=== PATIENT | female | born 1975 | race Caucasian/White ===

== ENCOUNTER 2016-09-30 06:33 | Day surgery (SDC) | payer SELFPAY ==
[2016-09-29 10:15] VITALS: BMI 24.8
[2016-09-30] MEDS ORDERED: HEPARIN NA (PORCINE) 5,000 UNITS/ML 1ML VIAL ONE (07:20)
[2016-09-30] MEDS ORDERED: ceFAZolin SODIUM 1 GM VIAL ONE ×2 (07:20→19:16)
[2016-09-30] MEDS ORDERED: EPINEPHrine/PF 1 MG/1 ML (1:1,000) AMPULE ONE ×3 (07:23→10:56)
[2016-09-30] MEDS ORDERED: LIDOCAINE HCL 1%, 10 MG/ML (20ML VIAL) ONE ×2 (07:23→10:56)
[2016-09-30] MEDS ORDERED: BACITRACIN 30 GM TUBE TOPICAL OINTMENT ONE (07:23)
[2016-09-30] MEDS ORDERED: ceFAZolin SODIUM 1 GM VIAL IVPB ONE (08:28)
[2016-09-30] MEDS ORDERED: DESFLURANE GAS 240 ML BOTTLE IH ONE (10:32)
[2016-09-30] MEDS ORDERED: oxyCODONE HCL 5 MG TABLET PO PRN (13:22)
[2016-09-30] MEDS ORDERED: ONDANSETRON 4 MG/2 ML VIAL IVPB PRN (13:22)
[2016-09-30] MEDS ORDERED: morphine CARPU-JECT 10 MG/1 ML DISP.SYRIN IVPUSH PRN (13:22)
[2016-09-30] MEDS ORDERED: HYDROmorphone HCL CARPU-JECT 2 MG/1 ML DISP.SYRIN IVPUSH ONE ×2 (13:40→14:00)
[2016-09-30] MEDS ORDERED: HYDROmorphone HCL CARPU-JECT 2 MG/1 ML DISP.SYRIN ONE ×2 (13:40→18:01)
[2016-09-30] MEDS ORDERED: HYDROmorphone HCL CARPU-JECT 1 MG/1 ML DISP.SYRIN IVPUSH PRN (13:41)
[2016-09-30] MEDS ORDERED: CEFAZOLIN (PRE-DOCKED) 50 ML IVPB SCH (15:00)
[2016-09-30] MEDS: LACTATED RINGERS SOLUTION 1,000 ML IV SCH (17:30)
[2016-09-30] MEDS: CEFAZOLIN (PRE-DOCKED) 50 ML IVPB SCH (20:00)
[2016-10-01] MEDS: CEFAZOLIN (PRE-DOCKED) 50 ML IVPB SCH ×4 (02:55→20:51)
[2016-10-01] MEDS: LACTATED RINGERS SOLUTION 1,000 ML IV SCH ×3 (05:49→18:58)
[2016-10-01] MEDS ORDERED: LACTATED RINGERS SOLUTION 1,000 ML IV ONE (08:34)
--- NOTE | 2016-10-01 08:39 | PN ---
Progress Note (short form) - Note Progress Note: All tissues dry and viable, no hematoma. ambulating, will dose sq heparin. patient with tachycardia 120s. plan CBC, duplex, bolus fluid, observe until later today. minimal pain, no leg pain, no SOB. obs this morning/ afternoon.
[2016-10-01] MEDS: HEPARIN NA (PORCINE) 5,000 UNITS/ML 1ML VIAL SQ SCH ×3 (09:24→23:05)
[2016-10-01 09:41] LABS: MCH 30.8 pg (25.7-33.7); MCHC 34.9 g/dl (32.0-36.0); MEAN CELL VOLUME 88.4 fl (80-96); MEAN PLT VOLUME 9.1 fl (7.5-11.1); PLATELET COUNT 214 K/MM3 (134-434); RDW 13.1 % (11.6-15.6); WHITE BLOOD COUNT 8.8 K/mm3 (4.0-10.0)
--- NOTE | 2016-10-01 09:41 | OP ---
DATE OF OPERATION: 09/30/2016 PROCEDURE: Liposuction to abdomen, flanks, back, and lateral thighs with free fat grafting to buttocks and hips. ATTENDING SURGEON: Lucius Armenta MD CATERING DIRECTOR: None. ANESTHESIA: General endotracheal anesthesia. The patient was marked in the holding area awake and aware of all areas of liposuction and fat grafting awake and aware of incisions and resulting scars. The patient was counseled on all of the risks, benefits, and alternatives to the procedure and understands and agrees to proceed. Then 5000 units of subcutaneous heparin are given preoperatively prior to going to the operating room. The patient is given sequential compression stockings and Alin hose. She is then brought to the operating room and placed in a supine position. Carefully padded in all ways. Positioned by surgical and anesthesia teams. A Farah catheter was placed, which was removed at the end of the procedure. A gram of Ancef is given preoperatively. She is prepped and draped in a standard surgical fashion. A time-out is called. Patient, procedure, site, side is verified. DESCRIPTION OF PROCEDURE: With multiple stab wound incisions measuring 5 mm in length, wetting solution is infiltrated to the lower abdomen, upper abdomen, and bilateral flanks. A total of 2500 mL of wetting solution is given. The first liter only contains 20 mL of 1% lidocaine plain with all of the liters containing 1 ampule of 1:1000 epinephrine. A full 20 minutes is awaited for hemostatic effect of the wetting solution prior to performing any liposuction. After awaiting the full 20 minutes, the SAFE liposuction technique is used with pre and post tunneling using a nonsuction 4 mm exploded tip cannula. After pre tunneling liposuction is performed with a combination of 5-mm cannulas for deep liposuction and 4-mm cannulas for more superficial liposuction, the lipoaspirates are 400 mL from each flank and 1300 mL from the lower abdomen and 600 mL from the upper abdomen. At complete of the liposuction, the liposuction incisions are closed with a series of interrupted 5-0 nylon suture with all members of the anesthesia and surgical teams available. The patient is then transferred while intubated onto her surgical stretcher while the operating table is then prepared for prone positioning with chest rolls, prone view set up. All extremities are carefully padded. The patient is then turned into a prone position and is carefully positioned by surgical and anesthesia teams after which the patient is reprepped and draped for further liposuction and fat grafting to the back and buttocks respectively. The liposuction continued. The same SAFE technique is used with pre and post tunneling. The lipoaspirates are 1200 mL from the lower back and 200 mL from each the right and left upper back. An additional 150 mL of able to be removed from each flank. An additional 200 mL is removed from each lateral thigh. Again, the tumescent mixture had been applied 20 minutes prior to liposuction. The tumescent mixture is the same as was used on the front. A total of 2.5 L is once again used. Only the first liter contains 20 mL of 1% lidocaine plain. All of the other liters contain 1 ampule of 1:1000 epinephrine per liter. Once the fat is entirely harvested and the liposuction incisions are closed with 5-0 nylon suture, the fat is processed using a [employer] fat processing system. It is washed with saline and decanted as gravity . Transferred into the combination of 10-, 20-, and 60-mL syringes. With separate small stab wound incisions on the buttocks on various locations, fat injection is then performed. The injection is performed in a subcutaneous and intramuscular plane with care to avoid any and all nerves and arteries. The total amount of fat injection, which is done with small quantity Saavedra technique using 1.5-mm Saavedra cannulas of varying lengths are to the left hip 220 mL, to the left buttock 500 mL, to the right hip 190 mL, and to the right buttock 480 mL. The endpoint is symmetric, even contour with good augmentation. The injection sites are closed with 5-0 nylon suture. The compression garment is then applied with cut outs for the buttocks bilaterally. The drapes are removed. The patient is then returned to a supine position on her surgical stretcher where she is extubated night a supine position having tolerated the procedure well. Transferred to recovery. On exam, she is neurologically intact with good sensation and motor to all extremities postoperatively. Edna [id number]
[2016-10-01] MEDS ORDERED: LACTOBACILLUS ACIDOPHILUS 1 EACH TAB (FP) PO SCH (10:00)
[2016-10-01] MEDS: CHOLECALCIFEROL (VITAMIN D3) 400 UNIT TABLET (FP) PO SCH (10:34)
--- NOTE | 2016-10-01 10:41 | PN ---
Progress Note (short form) - Note Progress Note: POD #1. Pt. kneeling forward on chair appearing in no distress without complaints. Pt. noted to be tachycardic. No respiratory distress noted. BP stable. WBC and HgB are wnl. Duplex taken showed limited visualization of the common femoral and deep femoral veins, with the rest of the deep venous system patent bilaterally. Pt. received SQ heparin earlier and getting a fluid bolus now. If tachycardia doesn't respond to iv fluid bolus , consider getting another study to rule-out DVT/PE.
--- NOTE | 2016-10-01 15:12 | CONSULT ---
Consultation: REQUESTING PROVIDER: Dr. Armenta CONSULT REQUEST: We have been asked to medically evaluate this patient for tachycardia. HISTORY OF PRESENT ILLNESS: This is a 41 year old female with no significant medical history POD #1 s/p "[place] butt lift". Medical evaluation is requested for tachycardiac (110-127) since 6:30am. She denies pain. She denies fevers/chills and has been afebrile. She has only a scant amount of oozing from her lower abdominal incision and H/H this morning was 12.5/35.7. She reports a cough productive of "clear" sputum. HR on my evaluation is 125 s/p administration of 1.5L of LR. She has remained normotensive and denies chest pain or shortness of breath. Duplex LE u/s was obtained, but as the patient was not supposed to lay flat, the common and deep femoral veins were not visualized. REVIEW OF SYSTEMS: CONSTITUTIONAL: Absent: fever, chills, diaphoresis, generalized weakness, malaise, loss of appetite, weight change HEENT: Absent: rhinorrhea, nasal congestion, throat pain, throat swelling, difficulty swallowing, mouth swelling, ear pain, eye pain, visual changes CARDIOVASCULAR: Absent: chest pain, syncope, palpitations, irregular heart rate, lightheadedness , peripheral edema RESPIRATORY: Cough productive of clear sputum Absent: shortness of breath, dyspnea with exertion, orthopnea, wheezing, stridor , hemoptysis GASTROINTESTINAL: Absent: abdominal pain, abdominal distension, nausea, vomiting, diarrhea, constipation, melena, hematochezia GENITOURINARY: Absent: dysuria, frequency, urgency, hesitancy, hematuria, flank pain, genital pain MUSCULOSKELETAL: Absent: myalgia, arthralgia, joint swelling, back pain, neck pain SKIN: Absent: rash, itching, pallor HEMATOLOGIC/IMMUNOLOGIC: Absent: easy bleeding, easy bruising, lymphadenopathy, frequent infections ENDOCRINE: Absent: unexplained weight gain, unexplained weight loss, heat intolerance, cold intolerance NEUROLOGIC: Absent: headache, focal weakness or paresthesias, dizziness, unsteady gait, seizure, mental status changes, bladder or bowel incontinence PSYCHIATRIC: Absent: anxiety, depression, suicidal or homicidal ideation, hallucinations. PHYSICAL EXAMINATION Vital Signs - 24 hr 09/30/16 09/30/16 09/30/16 15:20 15:35 15:50 Temperature Pulse Rate 104 H 96 H 92 H Respiratory 16 16 16 Rate Blood Pressure 109/65 101/63 99/66 O2 Sat by Pulse 98 99 99 Oximetry (%) 09/30/16 09/30/16 09/30/16 16:05 16:20 16:35 Temperature Pulse Rate 100 H 100 H 100 H Respiratory 16 16 16 Rate Blood Pressure 107/67 107/72 119/74 O2 Sat by Pulse 99 99 99 Oximetry (%) 09/30/16 09/30/16 09/30/16 17:24 18:00 19:00 Temperature Pulse Rate 100 H 99 H 110 H Respiratory 16 12 12 Rate Blood Pressure 121/78 125/87 117/80 O2 Sat by Pulse 97 99 100 Oximetry (%) 09/30/16 09/30/16 09/30/16 19:45 20:22 20:49 Temperature 98.4 F 97.8 F Pulse Rate 110 H 92 H Respiratory 16 18 Rate Blood Pressure 129/89 108/68 O2 Sat by Pulse 100 98 98 Oximetry (%) 09/30/16 10/01/16 10/01/16 22:03 02:00 06:36 Temperature 99.2 F 99.7 F H 99.3 F Pulse Rate 98 H 102 H 127 H Respiratory 20 20 22 Rate Blood Pressure 108/71 114/68 108/67 O2 Sat by Pulse Oximetry (%) 10/01/16 10/01/16 10/01/16 06:45 09:00 13:00 Temperature 98.4 F 98.1 F Pulse Rate 110 H 122 H 118 H Respiratory 20 16 16 Rate Blood Pressure 108/65 124/74 115/72 O2 Sat by Pulse 98 Oximetry (%) GENERAL: Awake, alert, and fully oriented, in no acute distress. HEAD: Normal with no signs of trauma. EYES: Pupils equal, round and reactive to light, extraocular movements intact, sclera anicteric, conjunctiva clear. No lid lag. EARS, NOSE, THROAT: Ears normal, nares patent, oropharynx clear without exudates. Moist mucous membranes. NECK: Normal range of motion, supple without lymphadenopathy, JVD, or masses. LUNGS: Breath sounds equal, clear to auscultation bilaterally. No wheezes, and no crackles. No accessory muscle use. HEART: Tachycardic. Regular rate and rhythm, normal S1 and S2 without murmur, rub or gallop. ABDOMEN: Soft, nontender, not distended, normoactive bowel sounds, no guarding, no rebound, no masses. No hepatomegaly or splenomegaly. MUSCULOSKELETAL: Normal range of motion at all joints. No bony deformities or tenderness. No CVA tenderness. UPPER EXTREMITIES: 2+ pulses, warm, well-perfused. No cyanosis. No clubbing. Cap refill <2 seconds. No peripheral edema. LOWER EXTREMITIES: 2+ pulses, warm, well-perfused. No calf tenderness. No peripheral edema. NEUROLOGICAL: Cranial nerves II-XII intact. Normal speech. Normal gait. PSYCHIATRIC: Cooperative. Good eye contact. Appropriate mood and affect. SKIN: Warm, dry, normal turgor. Dressings clean and dry. Laboratory Results - last 24 hr 10/01/16 08:55 WBC 8.8 RBC 4.04 Hgb 12.5 Hct 35.7 MCV 88.4 MCHC 34.9 RDW 13.1 Plt Count 214 MPV 9.1 Active Medications Generic Name Dose Route Start Last Admin Trade Name Freq PRN Reason Stop Dose Admin Cholecalciferol 400 unit 10/01/16 10:00 10/01/16 10:34 Vitamin D3 - PO 400 unit DAILY MARIAH Administration Heparin Sodium (Porcine) 5,000 unit 10/01/16 09:00 10/01/16 10:34 Heparin - SQ 5,000 unit BID MARIAH Administration Cefazolin Sodium 50 mls @ 100 mls/hr 09/30/16 21:00 10/01/16 14:10 Ancef 1gm Ivpb (Pre-Docked) IVPB 100 mls/hr Q6H-IV MARIAH Administration Lactated Ringer's 1,000 mls @ 125 mls/hr 10/01/16 14:30 Lactated Ringers Solution IV ASDIR MARIAH Lactobacillus Acidophilus 1 tab 10/01/16 10:00 10/01/16 10:38 Bacid - PO 1 tab Q2D@10 MARIAH Administration Morphine Sulfate 3 mg 09/30/16 13:22 Morphine Injection - IVPUSH Q4H PRN PAIN Ondansetron HCl 8 mg 09/30/16 13:22 Zofran Injection IVPB Q6H PRN NAUSEA Oxycodone HCl 10 mg 09/30/16 13:22 Roxicodone - PO Q4H PRN PAIN ASSESSMENT/PLAN: 41 year old female, POD #1 s/p "[place] butt lift" with persistent tachycardia. -H/H is normal and there is minimal oozing from the dressings -Patient denies pain -She is afebrile -She has been aggressively hydrated 1. Obtain EKG 2. Repeat CBC. Send CMP, cardiac profile, coags, TSH. 3. Obtain CTA Chest to r/o PE. Minimize time patient is laying flat. 4. Continue IV hydration. 5. Recommend transfer to telemetry unit if tachycardia persists. Dispo: We will continue to follow the patient. Thank you for this consultative opportunity. Addendum 18:00: Patient reports iodine allergy. Breaks out in hives if eats shellfish, thinks she had a CT scan done at age 10 and broke out in hives then. Explained to patient that she needs CTA to rule out potentially life- threatening PE and that we can pre-medicate, but she refuses. Considered therapeutic AC overnight and obtaining VQ scan in the morning, but this is not acceptable from a surgical standpoint. Dr. Armenta discussed the need for the study with the patient and she now agrees to the test. Solu-Medrol 125mg IVPB and Benadryl 50mg IVP will be given now prior to the study. Night team aware and will re-evaluate patient after the CTA. Visit type - Emergency Visit Emergency Visit: No - New Patient This patient is new to me today: Yes Date on this admission: 10/01/16 - Critical Care Critical Care patient: Yes Total Critical Care Time (in minutes): 45 Critical Care Statement: The care of this patient involved high complexity decision making to prevent further life threatening deterioration of the patient 's condition and/or to evalute & treat vital organ system(s) failure or risk of failure.
[2016-10-01 16:32] LABS: BASOPHIL 0.1 % (0-2.0); EOSINOPHIL 0.2 % (0-4.5); MCH 29.7 pg (25.7-33.7); MCHC 33.8 g/dl (32.0-36.0); MEAN CELL VOLUME 87.8 fl (80-96); MEAN PLT VOLUME 9.3 fl (7.5-11.1); NEUTROPHILS 65.6 % (42.8-82.8); PLATELET COUNT 202 K/MM3 (134-434); RDW 13.2 % (11.6-15.6); WHITE BLOOD COUNT 7.7 K/mm3 (4.0-10.0)
[2016-10-01 16:57] LABS: ANION GAP 8 (8-16); CALCIUM 8.3 mg/dL (8.5-10.1); CO2 28 mmol/L (21-32); CREATININE 0.8 mg/dL (0.55-1.02); GLUCOSE,RANDOM 91 mg/dL (74-106)
[2016-10-01] MEDS ORDERED: methylPREDNISolone NA SUCC 125 MG/2 ML VIAL IVPB ONE (18:16)
[2016-10-01 19:15] LABS: ALBUMIN 3.5 g/dl (3.4-5.0); ANION GAP 12 (8-16); BILIRUBIN,TOTAL 0.3 mg/dL (0.2-1.0); CALCIUM 8.1 mg/dL (8.5-10.1); CO2 24 mmol/L (21-32); CREATININE 0.8 mg/dL (0.55-1.02); GLUCOSE,RANDOM 91 mg/dL (74-106); SGOT/AST 54 U/L (15-37); SGPT/ALT 33 U/L (12-78); TOT PROT 6.7 g/dl (6.4-8.2)
[2016-10-01 19:28] LABS: ALK PHOS 73 U/L (45-117); TROPONIN I < 0.02 ng/ml (0.00-0.05)
[2016-10-02] MEDS ORDERED: morphine CARPU-JECT 4 MG/1 ML DISP.SYRIN IVPUSH PRN (01:14)
[2016-10-02] MEDS: CEFAZOLIN (PRE-DOCKED) 50 ML IVPB SCH ×2 (02:38→08:40)
--- NOTE | 2016-10-02 08:30 | PN ---
Physical Exam: SUBJECTIVE: Patient seen and examined OBJECTIVE: Vital Signs Period Temp Pulse Resp BP Sys/Padgett Pulse Ox Last 24 Hr 98.1 F-100.4 F 82-123 16-20 114-124/50-75 98-98 GENERAL: The patient is awake, alert, and fully oriented, in no acute distress. HEAD: Normal with no signs of trauma. EYES: PERRL, extraocular movements intact, sclera anicteric, conjunctiva clear. No ptosis. ENT: Ears normal, nares patent, oropharynx clear without exudates, moist mucous membranes. NECK: Trachea midline, full range of motion, supple. LUNGS: Breath sounds equal, clear to auscultation bilaterally, no wheezes, no crackles, no accessory muscle use. HEART: Regular rate and rhythm, S1, S2 without murmur, rub or gallop. ABDOMEN: Soft, nontender, nondistended, normoactive bowel sounds, no guarding, no rebound, no hepatosplenomegaly, no masses. EXTREMITIES: 2+ pulses, warm, well-perfused, no edema. NEUROLOGICAL: Cranial nerves II through XII grossly intact. Normal speech, gait not observed. PSYCH: Normal mood, normal affect. SKIN: Warm, dry, normal turgor, no rashes or lesions noted Laboratory Results - last 24 hr 10/01/16 10/01/16 10/01/16 08:55 16:00 16:00 WBC 8.8 7.7 RBC 4.04 3.94 Hgb 12.5 11.7 Hct 35.7 34.6 MCV 88.4 87.8 MCHC 34.9 33.8 RDW 13.1 13.2 Plt Count 214 202 MPV 9.1 9.3 Neutrophils % 65.6 Lymphocytes % 24.7 Monocytes % 9.4 Eosinophils % 0.2 Basophils % 0.1 Sodium Potassium Chloride Carbon Dioxide Anion Gap BUN Creatinine Creat Clearance w eGFR Random Glucose Calcium Total Bilirubin AST ALT Alkaline Phosphatase Creatine Kinase CK-MB (CK-2) Troponin I Total Protein Albumin TSH 4.64 H 10/01/16 10/01/16 16:00 16:00 WBC RBC Hgb Hct MCV MCHC RDW Plt Count MPV Neutrophils % Lymphocytes % Monocytes % Eosinophils % Basophils % Sodium 143 144 Potassium 3.6 3.6 Chloride 107 108 H Carbon Dioxide 28 24 Anion Gap 8 12 BUN 7 7 Creatinine 0.8 0.8 Creat Clearance w eGFR > 60 Random Glucose 91 91 Calcium 8.3 L 8.1 L Total Bilirubin 0.3 AST 54 H ALT 33 Alkaline Phosphatase 73 Creatine Kinase 2632 H CK-MB (CK-2) 4.080 H Troponin I < 0.02 Total Protein 6.7 Albumin 3.5 TSH Active Medications Generic Name Dose Route Start Last Admin Trade Name Freq PRN Reason Stop Dose Admin Cholecalciferol 400 unit 10/01/16 10:00 10/01/16 10:34 Vitamin D3 - PO 400 unit DAILY MARIAH Administration Heparin Sodium (Porcine) 5,000 unit 10/01/16 09:00 10/01/16 23:05 Heparin - SQ 5,000 unit BID MARIAH Administration Cefazolin Sodium 50 mls @ 100 mls/hr 09/30/16 21:00 10/02/16 02:38 Ancef 1gm Ivpb (Pre-Docked) IVPB 100 mls/hr Q6H-IV MARIAH Administration Lactated Ringer's 1,000 mls @ 125 mls/hr 10/01/16 14:30 10/01/16 18:58 Lactated Ringers Solution IV 125 mls/hr ASDIR MARIAH Administration Lactobacillus Acidophilus 1 tab 10/01/16 10:00 10/01/16 10:38 Bacid - PO 1 tab Q2D@10 MARIAH Administration Morphine Sulfate 3 mg 10/02/16 01:14 10/02/16 01:30 Morphine Injection - IVPUSH 3 mg Q4H PRN Administration PAIN Ondansetron HCl 8 mg 09/30/16 13:22 Zofran Injection IVPB Q6H PRN NAUSEA Oxycodone HCl 10 mg 09/30/16 13:22 10/01/16 18:58 Roxicodone - PO 10 mg Q4H PRN Administration PAIN ASSESSMENT/PLAN: 41 year old female, POD #1 s/p "[place] butt lift" with persistent tachycardia. -H/H is normal and there is minimal oozing from the dressings -Patient denies pain -She is afebrile -She has been aggressively hydrated 1. Obtain EKG 2. Repeat CBC. Send CMP, cardiac profile, coags, TSH. 3. Obtain CTA Chest to r/o PE. Minimize time patient is laying flat. 4. Continue IV hydration. 5. Recommend transfer to telemetry unit if tachycardia persists. Dispo: We will continue to follow the patient. Thank you for this consultative opportunity. Addendum 18:00: Patient reports iodine allergy. Breaks out in hives if eats shellfish, thinks she had a CT scan done at age 10 and broke out in hives then. Explained to patient that she needs CTA to rule out potentially life- threatening PE and that we can pre-medicate, but she refuses. Considered therapeutic AC overnight and obtaining VQ scan in the morning, but this is not acceptable from a surgical standpoint. Dr. Armenta discussed the need for the study with the patient and she now agrees to the test. Solu-Medrol 125mg IVPB and Benadryl 50mg IVP will be given now prior to the study. Night team aware and will re-evaluate patient after the CTA.
[2016-10-02 08:58] VITALS: BP 112/71; PULSE 103; TEMP 98.8
[2016-10-02] MEDS: HEPARIN NA (PORCINE) 5,000 UNITS/ML 1ML VIAL SQ SCH (10:03)
[2016-10-02] MEDS: CHOLECALCIFEROL (VITAMIN D3) 400 UNIT TABLET (FP) PO SCH (10:03)
[2016-10-02 10:06] LABS: BASOPHIL 0.1 % (0-2.0); MCH 30.7 pg (25.7-33.7); MCHC 34.9 g/dl (32.0-36.0); MEAN CELL VOLUME 87.9 fl (80-96); MEAN PLT VOLUME 8.7 fl (7.5-11.1); NEUTROPHILS 83.6 % (42.8-82.8); PLATELET COUNT 207 K/MM3 (134-434); RDW 13.3 % (11.6-15.6); WHITE BLOOD COUNT 10.9 K/mm3 (4.0-10.0)
[2016-10-02 10:15] LABS: TROPONIN I < 0.02 ng/ml (0.00-0.05)
--- NOTE | 2016-10-02 10:16 | EKG ---
Test Reason : Blood Pressure : / mmHG Vent. Rate : 124 BPM Atrial Rate : 124 BPM P-R Int : 126 ms QRS Dur : 072 ms QT Int : 328 ms P-R-T Axes : 051 -04 026 degrees QTc Int : 471 ms POOR DATA QUALITY, INTERPRETATION MAY BE ADVERSELY AFFECTED SINUS TACHYCARDIA NO PREVIOUS ECGS AVAILABLE PATIENT SITTING DURING EKG DUE TO PAIN Confirmed by JANETTE HAINES MD ([id number]) on 10/02/2016 10:15:57 AM Referred By: Lucius Armenta Confirmed By:JANETTE HAINES MD
[2016-10-02 10:27] LABS: ANION GAP 13 (8-16); CALCIUM 8.8 mg/dL (8.5-10.1); CO2 23 mmol/L (21-32); CREATININE 0.6 mg/dL (0.55-1.02); GLUCOSE,RANDOM 137 mg/dL (74-106)
--- NOTE | 2016-10-02 11:08 | PN ---
Progress Note (short form) - Note Progress Note: TAchycardia down to 100. Patient is not in pain. Asymptomatic, minimal drainage.Ambulating. Duplex negative, Official read on CTA pending though prelim is negative. Instructions for hydration discussed with patient. Remainder of medical workup is negative. Pending normal CTA, discharge is planned.
--- NOTE | 2016-10-02 15:56 | DS ---
DATE OF ADMISSION: 09/30/2016 DATE OF DISCHARGE: 10/02/2016 The patient had been admitted for liposuction with fat grafting to the buttocks, which was performed on September 30, 2016. The procedure was tolerated well. She was planned for discharge postoperative day 1; however, the patient was having asymptomatic tachycardia. She was maintained for further IV hydration as well as rule out DVT/PE. Bilateral lower extremity duplex was performed, which was negative, within the limits of the study. A CT angiogram was performed, which was negative by the official read. The patient has been afebrile through her hospital stay. With hydration, her tachycardia has improved to 100. Patient requests to be discharged, which I feel is safe at this point, having ruled out any other causes for tachycardia. She has been bolused several liters over the day yesterday, has been maintained on IV 125 mL of lactated Ringer overnight. She is urinating, ambulating. She is given instructions for oral hydration as well as ambulation. She is to follow up with me in 1 week, or sooner p.r.n. Medical consult for this patient was appreciated, and workup for patient was negative. ANDRÉS SANTIZO M.D. [id number]
--- NOTE | 2016-10-05 08:08 | HOSP ---
Subjective - Review of Symptoms Events since last encounter: Patient was discharged by prior to seeing her. Physical Examination Vital Signs: Vital Signs Temperature 98.8 F 10/02/16 08:56 Pulse Rate 103 H 10/02/16 08:56 Respiratory Rate 18 10/02/16 08:56 Blood Pressure 112/71 10/02/16 08:56 O2 Sat by Pulse Oximetry (%) 100 10/02/16 09:00 Labs: CBC, BMP 10/02/16 09:15 10/02/16 09:15
== END 2016-10-02 13:05 | disposition home or self-care (01) ==
LOC: JASUSAT 06:33 → J8W 20:51 → JASUSAT 10-02 13:05
PROVIDERS: ATTEND Plastic Surgery
PROC: 0J073ZZ Alteration of Back Subcutaneous Tissue and Fascia, Percutaneous Approach (ICD-10-PCS; 2016-09-30)
PROC: 0J0M3ZZ Alteration of Left Upper Leg Subcutaneous Tissue and Fascia, Percutaneous Approach (ICD-10-PCS; 2016-09-30)
PROC: 0J0L3ZZ Alteration of Right Upper Leg Subcutaneous Tissue and Fascia, Percutaneous Approach (ICD-10-PCS; 2016-09-30)
PROC: 0J093ZZ Alteration of Buttock Subcutaneous Tissue and Fascia, Percutaneous Approach (ICD-10-PCS; 2016-09-30)
PROC: 0J083ZZ Alteration of Abdomen Subcutaneous Tissue and Fascia, Percutaneous Approach (ICD-10-PCS; principal; 2016-09-30 08:00)
DX: Z41.1 Encounter for cosmetic surgery (principal)
CPT/HCPCS: 36415; 71275-TC; 80048; 80053; 82550; 82553; 84443; 84484; 84703; 85025; 85027; 93005; 93010; 93970-TC; 94760; J1644